=== PATIENT | male | born 1950 | race Caucasian/White ===

== ENCOUNTER 2019-11-01 05:52 | Outpatient (CLI) | payer MEDICARE, OTHER ==
[2019-11-01 17:23] LABS: SARS-CoV-2 MS2 Positive; SARS-CoV-2 N Gene Negative; SARS-CoV-2 S Gene Negative; SARS-CoV-2 orf1ab Negative
== END 2019-11-01 05:53 | disposition home or self-care (01) ==
LOC: ERS 05:52
PROVIDERS: ATTEND Internal Medicine Critical Care Medicine
DX: Z11.59 Encounter for screening for other viral diseases (principal)
CPT/HCPCS: 87635; U0003

== ENCOUNTER 2019-11-06 19:30 | Outpatient (CLI) | payer MEDICARE | END 2019-11-06 19:31 | disposition home or self-care (01) | LOC: SLEEPLAB 19:30 | PROVIDERS: ATTEND Internal Medicine Critical Care Medicine | DX: G47.33 Obstructive sleep apnea (adult) (pediatric) (principal); R06.83 Snoring; G25.81 Restless legs syndrome; R09.89 Other specified symptoms and signs involving the circulatory and respiratory systems; R53.83 Other fatigue | CPT/HCPCS: 95810 ==

== ENCOUNTER 2019-11-26 19:00 | Outpatient (CLI) | payer MEDICARE | END 2019-11-26 19:01 | disposition home or self-care (01) | LOC: SLEEPLAB 19:00 | PROVIDERS: ATTEND Internal Medicine Critical Care Medicine | DX: G47.33 Obstructive sleep apnea (adult) (pediatric) (principal); R06.83 Snoring; R53.83 Other fatigue; E66.9 Obesity, unspecified; G47.10 Hypersomnia, unspecified; G47.61 Periodic limb movement disorder; Z68.38 Body mass index [BMI] 38.0-38.9, adult | CPT/HCPCS: 95811 ==